=== PATIENT | male | born 1975 | race Caucasian/White ===

== ENCOUNTER 2021-01-29 13:59 | Outpatient (CLI) | payer OTHER, BC, SELFPAY ==
--- NOTE | 2021-01-29 10:30 | DI.RAD_ITS ---
Exam(s) XR CERVICAL SPINE COMP 4-5V EXAM: XR CERVICAL SPINE COMP 4-5V CLINICAL HISTORY: acute neck pain,M54.2 TECHNIQUE: COMPARISON: No exams were available for comparison FINDINGS: Five views were obtained. The intervertebral disc spaces appear fairly well maintained perhaps sligh t narrowing C6-7. There is a slight cervical kyphosis. Neural foramina appear well maintained as vi sualized oblique views. There are slight hypertrophic degenerative changes the vertebral endplates and facet joints of the lo wer cervical region. Prevertebral soft tissues appear intact. IMPRESSION: Mild DJD and mild cervical kyphosis. RADIATION DOSE DELIVERED: Total DLP
== END 2021-01-29 14:19 ==
PROVIDERS: Visit Provider Nurse Practitioner Family
DX: M54.2 Cervicalgia (principal); M50.30 Other cervical disc degeneration, unspecified cervical region; M40.202 Unspecified kyphosis, cervical region
CPT/HCPCS: 72050